=== PATIENT | female | born 1960 | race Caucasian/White ===

== ENCOUNTER → 2019-08-20 15:35 | Outpatient (BNVA) | payer BC, SELFPAY | PROVIDERS: Family Provider Internal Medicine; PCP Internal Medicine; Visit Provider Specialist | DX: G35 Multiple sclerosis (principal); G43.909 Migraine, unspecified, not intractable, without status migrainosus | CPT/HCPCS: 99215 ==

== ENCOUNTER 2019-12-03 07:47 | Outpatient (CLI) | payer BC, SELFPAY ==
[2019-12-03] MEDS: acetaminophen 500 mg Tablet 1000 MG PO (08:30)
[2019-12-03] MEDS: diphenhydrAMINE 50 mg/mL SDV 1mL 25 MG IVP (08:30)
== END 2019-12-03 07:48 | disposition home or self-care (01) ==
LOC: NSACUTE 07:48
PROVIDERS: Family Provider Internal Medicine; PCP Internal Medicine; Visit Provider Specialist
DX: G43.711 Chronic migraine without aura, intractable, with status migrainosus (principal); G35 Multiple sclerosis
CPT/HCPCS: 96365; 96374; 96375; 99214; J1200; J2350; J2930; J7050

== ENCOUNTER 2019-12-17 08:00 | Outpatient (CLI) | payer BC, SELFPAY ==
[2019-12-17] MEDS: acetaminophen 500 mg Tablet 1000 MG PO (08:20)
[2019-12-17] MEDS: diphenhydrAMINE 50 mg/mL SDV 1mL 25 MG IVP (08:25)
== END 2019-12-17 08:01 | disposition home or self-care (01) ==
LOC: NSACUTE 08:01
PROVIDERS: Family Provider Internal Medicine; PCP Internal Medicine; Visit Provider Specialist
DX: G35 Multiple sclerosis (principal)
CPT/HCPCS: 96374; 96375; 96413; 96415; J1200; J2350; J2930; J7050

== ENCOUNTER 2020-01-06 12:34 | Outpatient (CLI) | payer BC, SELFPAY ==
--- NOTE | 2020-01-06 13:00 | MR_ITS ---
WS: [id number] MRI BRAIN WITH AND WITHOUT CONTRAST HISTORY: Multiple Sclerosis COMPARISON: 05/24/2018 TECHNIQUE: Multiplanar imaging performed through the brain with Prohance 17 ml's IV. No acute infarcts. The distribution of demyelinating lesions is very similar to the prior study from 05/24/2018. Callosal, pericallosal and subchondral white matter lesions are identified. The largest l esion is pericallosal adjacent to the posterior LEFT occipital horn within the davis radiata. There are no new lesions identified. No necrosis or hemorrhage is seen. No enhancing lesions. No susceptibility artifacts or prior lacunar infarcts. Ventricles and extra-axial spaces are normal. Clivus and pituitary gland are normal. Visualized posterior fossa and brainstem are also normal. Postcontrast images are negative for masses or vascular malformations. Dural venous sinuses are normal. Paranasal sinuses: Well aerated with no significant disease. Mastoid air cells: Normal. Calvarium and scalp: Normal. MR/MR head wo/w con [id number] IMPRESSION: 1. No new or enhancing demyelinating lesions. 2. Callosal, pericallosal and subchondral white matter lesions are stable with no progression since 05/24/2018.
== END 2020-01-06 12:35 | disposition home or self-care (01) ==
LOC: RADSHAW 12:39
PROVIDERS: PCP Internal Medicine; Visit Provider Specialist
DX: G35 Multiple sclerosis (principal)
CPT/HCPCS: 70553; A9579

== ENCOUNTER 2020-06-23 08:42 | Outpatient (CLI) | payer BC, SELFPAY ==
[2020-06-23] MEDS: acetaminophen 500 mg Tablet 1000 MG PO (09:15)
[2020-06-23] MEDS: diphenhydrAMINE 50 mg/mL SDV 1mL 25 MG IVP (09:15)
== END 2020-06-23 08:43 | disposition home or self-care (01) ==
LOC: NSACUTE 08:43
PROVIDERS: PCP Internal Medicine; Visit Provider Specialist
DX: G35 Multiple sclerosis (principal)
CPT/HCPCS: 96365; 96366; 96375; 99213; 99214; J1200; J2350; J2930; J7040

== ENCOUNTER 2020-12-29 08:12 | Outpatient (CLI) | payer BC, SELFPAY ==
[2020-12-29] MEDS: acetaminophen 500 mg Tablet 1000 MG PO (08:45)
[2020-12-29] MEDS: diphenhydrAMINE 50 mg/mL SDV 1mL 12.5 MG IVP (09:22)
== END 2020-12-29 08:13 | disposition home or self-care (01) ==
LOC: NSACUTE 08:14
PROVIDERS: PCP Internal Medicine; Visit Provider Specialist
DX: G35 Multiple sclerosis (principal); G44.53 Primary thunderclap headache
CPT/HCPCS: 96365; 96366; 96375; 99215; J1200; J2350; J2930; J7040

== ENCOUNTER 2020-12-29 12:59 | Outpatient (CLI) | payer BC, SELFPAY ==
--- NOTE | 2020-12-29 13:00 | CT_ITS ---
WS: [id number] CT ANGIOGRAM CEREBRAL ARTERIES HISTORY: G44.53 - Primary thunderclap headache TECHNIQUE: Pre and postcontrast imaging through the brain. CT angiogram is performed of the cerebral arteries. During arterial injection imaging is obtained from the skull vertex to the skull base in 1. 25 mm imaging. Coronal and sagittal reformats are submitted. Additional multi planar reformats of the cerebral arteries are submitted, MIP imaging also reviewed. All CT scans at [facility] use at least one of these dose optimization techniques: automated exposure control; mA and/or kV adju stment per patient size (includes targeted exams where dose is matched to clinical indication); or it erative reconstruction. CONTRAST: Omnipaque 350; 95 mL IV. DLP: 1978.87 mGycm COMPARISON: MRI brain 01/06/2020. Noncontrast CT brain negative for edema or hemorrhage. Intracranial vertebral arteries: Normal with no significant atherosclerosis. Basilar artery: No significant stenosis or occlusion. No aneurysm. Intracranial Internal carotid arteries: Demonstrates no significant stenosis or plaque. Middle cerebral arteries: Normal. Anterior cerebral arteries and ACOM: Normal. Posterior cerebral arteries and PCOM's: Normal. Dural venous sinuses are normally enhancing. Mastoid air cells: Normal. Paranasal sinuses: Normal. Calvarium: Normal. CT/CT angio head [id number] IMPRESSION: Negative angiograms cerebral arteries. No aneurysm or occlusion.
[2020-12-29] MEDS: iohexol 350 mg/mL 100 mL Btl IV (13:43)
== END 2020-12-29 13:00 | disposition home or self-care (01) ==
LOC: RADWPI 13:04
PROVIDERS: PCP Internal Medicine; Visit Provider Specialist
DX: G44.53 Primary thunderclap headache (principal)
CPT/HCPCS: 70496; Q9967

== ENCOUNTER 2021-06-20 | Outpatient (CLI) | payer BC, SELFPAY | END 2021-06-20 00:01 | disposition home or self-care (01) | LOC: NSACUTE 02-07 09:25 | PROVIDERS: PCP Internal Medicine; Visit Provider Specialist | DX: G35 Multiple sclerosis (principal); G43.711 Chronic migraine without aura, intractable, with status migrainosus | CPT/HCPCS: 99213 ==

== ENCOUNTER 2021-06-20 08:55 | Outpatient (CLI) | payer OTHER, BC, SELFPAY ==
[2021-06-20 09:07] VITALS: BP 124/82; PULSE 65; RESP 18; TEMP 36.2; O2SAT 99
[2021-06-20] MEDS: acetaminophen 500 mg Tablet 1000 MG PO (09:32)
[2021-06-20] MEDS: sodium chloride 0.9% 250 ML 50 ML IV (09:34)
[2021-06-20] MEDS: diphenhydrAMINE 50 mg/mL SDV 1mL 25 MG IV (09:35)
[2021-06-20 10:06] VITALS: BP 136/87; PULSE 77; RESP 18; TEMP 36.5; O2SAT 99
[2021-06-20 10:49] VITALS: BP 118/87; PULSE 82; RESP 18; TEMP 36.6; O2SAT 97
[2021-06-20 12:14] VITALS: BP 134/83; PULSE 83; RESP 18; TEMP 36.9; O2SAT 97
== END 2021-06-20 08:56 | disposition home or self-care (01) ==
LOC: ONCMED 08:57
PROVIDERS: PCP Internal Medicine; Visit Provider Specialist
DX: G35 Multiple sclerosis (principal); G43.711 Chronic migraine without aura, intractable, with status migrainosus
CPT/HCPCS: 96365; 96366; 96375; 99213; J1200; J2350; J2930; J7040; J7050

== ENCOUNTER 2023-05-11 14:45 | Outpatient (CLI) | payer BC, SELFPAY ==
--- NOTE | 2023-05-11 15:15 | MR_ITS ---
WS: [id number] MRI HEAD WITH CONTRAST TECHNIQUE: Sagittal T1, T2 axial, T2 axial FLAIR, axial susceptibility weighted imaging, axial diffus ion weighted images, and coronal T2 images were obtained. Pre and post-T1 axial and post T1 coronal i mages. ADC and FSPGR images. CLINICAL INFORMATION: G35 - Multiple sclerosis COMPARISON: MRI 01/06/2020 FINDINGS: No evidence of restricted diffusion to suggest acute ischemia. Ventricular system and basilar cistern s are patent. Mild patchy supratentorial white matter changes in a pericallosal distribution compatib le with history of demyelinating disease. No abnormal enhancing lesions indicate active disease. No s ignificant parenchymal volume loss. No significant atrophy of the corpus callosum. No significant T1 hypointense lesion limited. No hemosiderin on the susceptibly weighted images. Normal posterior fossa. Normal vascular flow voids at the skull base. No extra-axial fluid collections. No evidence of mass or mass effect. Mild mucosa l thickening in the paranasal sinuses. Mastoid air cells are well aerated. IMPRESSION: 1. Stable supratentorial white matter lesions compatible with history of demyelinating disease. No e vidence of disease progression. 2. No enhancing lesion indicate active disease. 3. No significant parenchymal volume loss. 4. No other significant changes compared to previous.
--- NOTE | 2023-05-11 16:00 | MR_ITS ---
WS: [id number] MR CERVICAL SPINE WO/W DATE OF EXAMINATION: 03/27/2023 COMPARISON: MRI 2018 HISTORY: TECHNIQUE: Sagittal T1, T2 and T2 inversion recovery; axial T2, T2 gradient and fiesta. Post gadolini um imaging with fat saturation technique. Images degraded by patient motion. FINDINGS:Straightening of the normal cervical lordosis. No high grade central canal narrowing. Few ch ronic demyelinating plaques in the cervical cord unchanged compared to 2018. No cord atrophy. Postgad olinium images degraded due to motion artifact and poor fat saturation although no definite enhancing lesions. Additional chronic lesion at LEFT C3-4. Largest chronic lesion at T1-T2 eccentric to the LEFT unchanged compared to 2018 best seen on the sag ittal STIR imaging. C2-3: Mild facet arthropathy. Mild RIGHT and no significant LEFT bony foraminal narrowing. C3-4: Moderate facet arthropathy. Mild RIGHT and no severe LEFT foraminal narrowing. C4-5: Mild disc bulging with osteophytic ridging. Mild central canal stenosis. Moderate to severe RIG HT and mild LEFT bony foraminal narrowing. C5-6: Disc osteophyte complex with endplate ridging. Moderate to severe bilateral bony foraminal narr owing. Moderate facet arthropathy. C6-7: Shallow central protrusion. Mild facet arthropathy. Moderate to severe LEFT greater than RIGHT bony foraminal narrowing. C7-T1: Mild LEFT and no significant RIGHT foraminal narrowing. Spine canal is patent. IMPRESSION: Some images degraded by motion. 1. Chronic demyelinating plaques in the cervical cord appear unchanged since 2018. Largest lesion at LEFT T1-2 appears unchanged. 2. Limited post gadolinium images degraded due to motion and incomplete fat saturation. No apparent enhancing lesions. Post gadolinium images could be repeated if continued clinical concern. 3. Mild central canal stenosis C4-C5 and C6-C7. 4. Moderate to severe bony foraminal narrowing worse at RIGHT C4-5, bilateral C5-C6, and bilateral C 6-C7.
[2023-05-11] MEDS: gadobenate dimeglumine 20 mL vial IV (16:08)
== END 2023-05-11 14:46 | disposition home or self-care (01) ==
PROVIDERS: PCP Internal Medicine; Visit Provider Specialist
DX: G35 Multiple sclerosis (principal); M48.02 Spinal stenosis, cervical region
CPT/HCPCS: 70553; 72156; A9577